=== PATIENT | male | born 1940 | race Caucasian/White ===

== ENCOUNTER → 2017-01-22 07:55 | Outpatient (CLI) | payer MEDICARE, SELFPAY ==
--- NOTE | 2017-01-22 07:58 | US_ITS ---
STUDY: RENAL ULTRASOUND - COMPLETE REASON FOR EXAM: Male, 76 years old. 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 TECHNIQUE: Ultrasound evaluation of the kidneys was performed with real-time and static lopez-scale imaging. COMPARISON: Comparison is made with prior ultrasound dated November 27, 2016. FINDINGS: RIGHT KIDNEY: Normal location of the right kidney, which is normal in size. The right kidney measures 10.3 cm x 5.7 cm x 4.7 cm. There is a normal cortex of the right kidney. The renal cortex measures 1.2 cm. There is a 1.9 cm x 1.8 cm x 1.8 cm renal cyst. There are no right renal calculi. There is no right hydronephrosis. DISTAL RIGHT URETER: There is non-visualization of the distal right ureter. There is no demonstrated right ureterovesical junction calculus. There is a visualized right ureteral jet. LEFT KIDNEY: Normal location of the left kidney, which is normal in size. The left kidney measures 11.2 cm x 5.2 cm x 6.0 cm. There is a normal cortex of the left kidney. The renal cortex measures 1.8 cm. There is a 1.6 cm x 1.5 cm x 1.4 cm cyst. There are no left renal calculi. There is no left hydronephrosis. DISTAL LEFT URETER: There is non-visualization of the distal left ureter. There is no demonstrated left ureterovesical junction calculus. There is a visualized left ureteral jet. BLADDER: The distended urinary bladder has a volume of 310 ml. The empty urinary bladder has a volume of 218 ml. There is a normal wall thickness of the distended urinary bladder. There is no demonstrated mass within the urinary bladder. There are no demonstrated bladder calculi. Small amount of fluid is seen in the pelvis. Mild splenomegaly. US/Kidney and Bladder IMPRESSION: Bilateral renal cysts. Electronically Signed: Myron Stapleton MD at 14:59 EST Tel [phone], Service support ,
== END | disposition home or self-care (01) ==
PROVIDERS: Family Provider Internal Medicine; PCP Internal Medicine; Visit Provider Internal Medicine Hematology & Oncology
DX: C91.60 Prolymphocytic leukemia of T-cell type not having achieved remission (principal); Z79.899 Other long term (current) drug therapy
CPT/HCPCS: 76770; 36415; 85025; 96365; 96366; J7050; A4216; J3490